=== PATIENT | male | born 1980 | race Caucasian/White ===

== ENCOUNTER 2021-01-12 13:07 | Inpatient (IN) | payer MEDICARE, MEDICAID ==
[~2021-01-12] VITALS: Ht 188 cm; Wt 89.0 kg
[2021-01-12] MEDS ORDERED: QUET100T PO (14:15)
[2021-01-12] MEDS ORDERED: LITH600C5 PO (14:15)
[2021-01-12] MEDS ORDERED: ZOLPIDEM TARTRATE 10 MG TABLET PO PRN (14:15)
[2021-01-12] MEDS ORDERED: HYDR25TA84 PO (14:16)
[2021-01-12 15:04] VITALS: BP 130/73
[2021-01-12] MEDS: LORazepam 2 MG TABLET PO PRN (15:17)
[2021-01-12] MEDS: HALOPERIDOL 5 MG TABLET PO PRN (15:17)
[2021-01-12 16:13] VITALS: BP 136/71
[2021-01-12] MEDS ORDERED: ONDANSETRON HCL 4 MG TABLET PO PRN (17:00)
[2021-01-12] MEDS ORDERED: HYPROMELLOSE 0.5% 15 ML OPHTHALMIC SOLUTION OU PRN (17:00)
[2021-01-12] MEDS ORDERED: NICOTINE POLACRILEX 2 MG LOZENGE PO PRN (17:00)
[2021-01-12] MEDS: METHADONE HCL 10 MG TABLET PO SCH (19:45)
[2021-01-12] MEDS: RALTEGRAVIR 400 MG TABLET PO SCH (21:56)
[2021-01-13 05:36] VITALS: BP 126/71
[2021-01-13] MEDS ORDERED: ACETAMINOPHEN 325 MG TABLET PO PRN (07:45)
[2021-01-13] MEDS ORDERED: IBUPROFEN 400 MG TABLET PO PRN (07:45)
[2021-01-13] MEDS ORDERED: NICOTINE 14 MG/24 HOUR PATCH TD PRN (07:45)
[2021-01-13] MEDS ORDERED: ONDANSETRON HCL 4 MG TABLET PO PRN (07:45)
[2021-01-13] MEDS ORDERED: MAG HYDROX/AL HYDROX/SIMETH ES 30 ML SUSPENSION UDCUP PO PRN (07:45)
[2021-01-13] MEDS ORDERED: ALBUTEROL SULFATE HFA 90 MCG/PUFF 8 GM INHALER IH PRN (07:45)
[2021-01-13] MEDS ORDERED: DOCUSATE SODIUM 100 MG CAPSULE PO PRN (07:45)
[2021-01-13] MEDS ORDERED: MAGNESIUM HYDROXIDE SUSPENSION 30 ML UDCUP PO PRN (07:45)
[2021-01-13] MEDS ORDERED: LOPERAMIDE HCL 2 MG CAPSULE PO PRN (07:45)
[2021-01-13] MEDS ORDERED: PETROLATUM,WHITE 28 GM JELLY TP PRN (07:45)
[2021-01-13] MEDS ORDERED: CloNIDine HCL 0.1 MG TABLET PO PRN (07:45)
[2021-01-13] MEDS ORDERED: GuaiFENesin/D-METHORPHAN [SUGAR-FREE] 200-20MG/10 ML SYRUP UDCUP PO PRN (07:45)
[2021-01-13 08:13] LABS: CHOL/HDL RATIO 2.5 (4.2-7.3); FREE T4 (FREE THYROXINE) 1.26 ng/dL (0.76-1.46); THYROID STIMULATING HORMONE 0.83 uIU/mL (0.36-3.74)
[2021-01-13 08:34] VITALS: BP 114/63
[2021-01-13] MEDS: EMTRICITABINE/TENOFOVIR 200-300 MG TABLET PO SCH (08:37)
[2021-01-13] MEDS: RALTEGRAVIR 400 MG TABLET PO SCH ×2 (08:37→16:33)
[2021-01-13] MEDS: METHADONE HCL 10 MG TABLET PO SCH (08:37)
[2021-01-13] MEDS: HydrALAZINE HCL 25 MG TABLET PO SCH (08:37)
[2021-01-13] MEDS: LITHIUM CARBONATE 600 MG CAPSULE PO SCH (13:01)
[2021-01-13] MEDS: LORazepam 2 MG TABLET PO PRN (13:04)
[2021-01-13 16:10] VITALS: BP 122/63
[2021-01-13] MEDS: QUEtiapine FUMARATE 100 MG TABLET PO SCH (20:43)
[2021-01-14] MEDS: LITHIUM CARBONATE 600 MG CAPSULE PO SCH (08:57)
[2021-01-14] MEDS: EMTRICITABINE/TENOFOVIR 200-300 MG TABLET PO SCH (08:57)
[2021-01-14] MEDS: HydrALAZINE HCL 25 MG TABLET PO SCH (08:57)
[2021-01-14] MEDS: RALTEGRAVIR 400 MG TABLET PO SCH ×2 (08:58→16:39)
[2021-01-14] MEDS: METHADONE HCL 10 MG TABLET PO SCH (09:01)
[2021-01-14 09:19] VITALS: BP 110/89
[2021-01-14] MEDS: LORazepam 2 MG TABLET PO PRN (10:48)
[2021-01-14] MEDS: OLANZapine 5 MG TABLET PO SCH (16:39)
[2021-01-14 17:41] VITALS: BP 138/83
[2021-01-14] MEDS: BACITRACIN 28 GM OINTMENT TP SCH (17:50)
[2021-01-14] MEDS: QUEtiapine FUMARATE 100 MG TABLET PO SCH (20:31)
[2021-01-15 08:37] VITALS: BP 135/86
[2021-01-15] MEDS: METHADONE HCL 10 MG TABLET PO SCH (10:12)
[2021-01-15] MEDS: EMTRICITABINE/TENOFOVIR 200-300 MG TABLET PO SCH (10:13)
[2021-01-15] MEDS: RALTEGRAVIR 400 MG TABLET PO SCH ×2 (10:13→16:29)
[2021-01-15] MEDS: BACITRACIN 28 GM OINTMENT TP SCH ×2 (10:14→16:29)
[2021-01-15] MEDS: OLANZapine 5 MG TABLET PO SCH ×2 (10:14→16:29)
[2021-01-15] MEDS: LORazepam 2 MG TABLET PO PRN ×2 (10:14→21:20)
[2021-01-15] MEDS: HydrALAZINE HCL 25 MG TABLET PO SCH (10:15)
[2021-01-15] MEDS: LITHIUM CARBONATE 600 MG CAPSULE PO SCH (10:15)
[2021-01-15 16:07] VITALS: BP 123/72
[2021-01-15] MEDS: QUEtiapine FUMARATE 100 MG TABLET PO SCH (20:15)
[2021-01-16 02:28] VITALS: BP 123/73
[2021-01-16] MEDS: HydrALAZINE HCL 25 MG TABLET PO SCH (07:59)
[2021-01-16] MEDS: OLANZapine 5 MG TABLET PO SCH ×2 (08:00→16:21)
[2021-01-16] MEDS: LITHIUM CARBONATE 600 MG CAPSULE PO SCH (08:00)
[2021-01-16] MEDS: EMTRICITABINE/TENOFOVIR 200-300 MG TABLET PO SCH (08:00)
[2021-01-16] MEDS: RALTEGRAVIR 400 MG TABLET PO SCH ×2 (08:00→16:21)
[2021-01-16] MEDS: METHADONE HCL 10 MG TABLET PO SCH (08:00)
[2021-01-16] MEDS: BACITRACIN 28 GM OINTMENT TP SCH ×2 (08:02→16:21)
[2021-01-16 08:58] VITALS: BP 115/73
[2021-01-16] MEDS: LORazepam 2 MG TABLET PO PRN ×2 (12:22→18:03)
[2021-01-16] MEDS: HALOPERIDOL 5 MG TABLET PO PRN (12:22)
[2021-01-16 16:44] VITALS: BP 107/71
[2021-01-16] MEDS: QUEtiapine FUMARATE 100 MG TABLET PO SCH (20:40)
[2021-01-17 08:34] VITALS: BP 101/75
[2021-01-17] MEDS: LITHIUM CARBONATE 600 MG CAPSULE PO SCH (09:02)
[2021-01-17] MEDS: RALTEGRAVIR 400 MG TABLET PO SCH ×2 (09:02→16:18)
[2021-01-17] MEDS: HydrALAZINE HCL 25 MG TABLET PO SCH (09:02)
[2021-01-17] MEDS: OLANZapine 5 MG TABLET PO SCH (09:02)
[2021-01-17] MEDS: EMTRICITABINE/TENOFOVIR 200-300 MG TABLET PO SCH (09:02)
[2021-01-17] MEDS: METHADONE HCL 10 MG TABLET PO SCH (09:03)
[2021-01-17] MEDS: LORazepam 2 MG TABLET PO PRN ×2 (09:06→20:08)
[2021-01-17] MEDS: BACITRACIN 28 GM OINTMENT TP SCH ×2 (09:26→16:18)
[2021-01-17 15:51] LABS: COVID AG,FIA SOURCE NASOPHARYNGEAL
[2021-01-17 16:17] VITALS: BP 121/76
[2021-01-17] MEDS: OLANZapine 10 MG TABLET PO SCH (20:07)
[2021-01-17] MEDS: QUEtiapine FUMARATE 100 MG TABLET PO SCH (20:07)
[2021-01-17] MEDS: HALOPERIDOL 5 MG TABLET PO PRN (20:08)
[2021-01-18 08:36] VITALS: BP 111/72
[2021-01-18] MEDS: RALTEGRAVIR 400 MG TABLET PO SCH ×2 (09:00→16:15)
[2021-01-18] MEDS: BACITRACIN 28 GM OINTMENT TP SCH ×2 (09:00→16:15)
[2021-01-18] MEDS: HydrALAZINE HCL 25 MG TABLET PO SCH (09:00)
[2021-01-18] MEDS: EMTRICITABINE/TENOFOVIR 200-300 MG TABLET PO SCH (09:00)
[2021-01-18] MEDS: LITHIUM CARBONATE 600 MG CAPSULE PO SCH (09:00)
[2021-01-18] MEDS: METHADONE HCL 10 MG TABLET PO SCH (09:00)
[2021-01-18] MEDS: LORazepam 2 MG TABLET PO PRN ×2 (13:20→20:43)
[2021-01-18 16:03] VITALS: BP 118/73
[2021-01-18] MEDS: OLANZapine 10 MG TABLET PO SCH (20:43)
[2021-01-18] MEDS: QUEtiapine FUMARATE 100 MG TABLET PO SCH (20:43)
[2021-01-19] MEDS: BACITRACIN 28 GM OINTMENT TP SCH ×2 (09:00→16:19)
[2021-01-19] MEDS: RALTEGRAVIR 400 MG TABLET PO SCH ×2 (09:36→16:18)
[2021-01-19] MEDS: LITHIUM CARBONATE 600 MG CAPSULE PO SCH (09:37)
[2021-01-19] MEDS: HydrALAZINE HCL 25 MG TABLET PO SCH (09:37)
[2021-01-19] MEDS: METHADONE HCL 10 MG TABLET PO SCH (09:37)
[2021-01-19] MEDS: EMTRICITABINE/TENOFOVIR 200-300 MG TABLET PO SCH (09:37)
[2021-01-19] MEDS: LORazepam 2 MG TABLET PO PRN ×2 (10:34→17:08)
[2021-01-19 13:14] VITALS: BP 120/72
[2021-01-19 16:38] VITALS: BP 121/76
[2021-01-19 17:08] VITALS: BP 121/76
[2021-01-19 18:08] VITALS: BP 119/69
[2021-01-19] MEDS: OLANZapine 10 MG TABLET PO SCH (20:05)
[2021-01-19] MEDS: QUEtiapine FUMARATE 100 MG TABLET PO SCH (20:05)
[2021-01-20 08:00] VITALS: BP 110/70
[2021-01-20 08:37] VITALS: BP 110/70
[2021-01-20] MEDS: BACITRACIN 28 GM OINTMENT TP SCH ×2 (09:00→16:40)
[2021-01-20] MEDS: HydrALAZINE HCL 25 MG TABLET PO SCH (09:41)
[2021-01-20] MEDS: LITHIUM CARBONATE 600 MG CAPSULE PO SCH (09:41)
[2021-01-20] MEDS: EMTRICITABINE/TENOFOVIR 200-300 MG TABLET PO SCH (09:41)
[2021-01-20] MEDS: RALTEGRAVIR 400 MG TABLET PO SCH ×2 (09:41→16:40)
[2021-01-20] MEDS: METHADONE HCL 10 MG TABLET PO SCH (09:42)
[2021-01-20] MEDS: LORazepam 2 MG TABLET PO PRN ×2 (11:23→18:58)
[2021-01-20 16:00] VITALS: BP 119/62
[2021-01-20] MEDS: QUEtiapine FUMARATE 100 MG TABLET PO SCH (20:22)
[2021-01-20] MEDS: OLANZapine 10 MG TABLET PO SCH (20:22)
[2021-01-21] MEDS: HydrALAZINE HCL 25 MG TABLET PO SCH (08:03)
[2021-01-21] MEDS: LITHIUM CARBONATE 600 MG CAPSULE PO SCH (08:03)
[2021-01-21] MEDS: BACITRACIN 28 GM OINTMENT TP SCH ×2 (08:03→16:43)
[2021-01-21] MEDS: EMTRICITABINE/TENOFOVIR 200-300 MG TABLET PO SCH (08:03)
[2021-01-21] MEDS: METHADONE HCL 10 MG TABLET PO SCH (08:03)
[2021-01-21] MEDS: RALTEGRAVIR 400 MG TABLET PO SCH ×2 (08:03→16:43)
[2021-01-21] MEDS: HALOPERIDOL 5 MG TABLET PO PRN (08:07)
[2021-01-21 08:57] VITALS: BP 111/74
[2021-01-21] MEDS: LORazepam 2 MG TABLET PO PRN (12:17)
[2021-01-21 16:53] VITALS: BP 105/61
[2021-01-21] MEDS: QUEtiapine FUMARATE 100 MG TABLET PO SCH (20:23)
[2021-01-21] MEDS: OLANZapine 10 MG TABLET PO SCH (20:23)
[2021-01-22] MEDS: METHADONE HCL 10 MG TABLET PO SCH (08:09)
[2021-01-22] MEDS: LITHIUM CARBONATE 600 MG CAPSULE PO SCH (08:09)
[2021-01-22] MEDS: HydrALAZINE HCL 25 MG TABLET PO SCH (08:09)
[2021-01-22] MEDS: EMTRICITABINE/TENOFOVIR 200-300 MG TABLET PO SCH (08:09)
[2021-01-22] MEDS: RALTEGRAVIR 400 MG TABLET PO SCH ×2 (08:09→16:10)
[2021-01-22 08:38] VITALS: BP 119/66
[2021-01-22] MEDS: LORazepam 2 MG TABLET PO PRN ×2 (11:43→17:34)
[2021-01-22 16:00] VITALS: BP 124/76
[2021-01-22] MEDS: QUEtiapine FUMARATE 100 MG TABLET PO SCH (20:16)
[2021-01-22] MEDS: OLANZapine 10 MG TABLET PO SCH (20:16)
[2021-01-23] MEDS: LITHIUM CARBONATE 600 MG CAPSULE PO SCH (08:12)
[2021-01-23] MEDS: EMTRICITABINE/TENOFOVIR 200-300 MG TABLET PO SCH (08:12)
[2021-01-23] MEDS: METHADONE HCL 10 MG TABLET PO SCH (08:12)
[2021-01-23] MEDS: HydrALAZINE HCL 25 MG TABLET PO SCH (08:12)
[2021-01-23] MEDS: RALTEGRAVIR 400 MG TABLET PO SCH ×2 (08:12→16:21)
[2021-01-23 09:00] VITALS: BP 126/68
[2021-01-23] MEDS: LORazepam 2 MG TABLET PO PRN ×2 (12:08→19:50)
[2021-01-23 16:28] VITALS: BP 110/74
[2021-01-23 18:02] LABS: COVID AG,FIA SOURCE NASAL SWAB
[2021-01-23 19:50] VITALS: BP 110/74
[2021-01-23] MEDS: QUEtiapine FUMARATE 100 MG TABLET PO SCH (20:15)
[2021-01-23] MEDS: OLANZapine 10 MG TABLET PO SCH (20:15)
[2021-01-23 20:17] VITALS: BP 110/74
[2021-01-23 21:17] VITALS: BP 115/68
[2021-01-23] MEDS: HALOPERIDOL 5 MG TABLET PO PRN (21:48)
[2021-01-23 22:00] VITALS: BP 115/60
[2021-01-24] MEDS: LITHIUM CARBONATE 600 MG CAPSULE PO SCH (08:16)
[2021-01-24] MEDS: METHADONE HCL 10 MG TABLET PO SCH (08:16)
[2021-01-24] MEDS: EMTRICITABINE/TENOFOVIR 200-300 MG TABLET PO SCH (08:17)
[2021-01-24] MEDS: RALTEGRAVIR 400 MG TABLET PO SCH (08:17)
[2021-01-24] MEDS: HydrALAZINE HCL 25 MG TABLET PO SCH (08:24)
[2021-01-24 08:55] VITALS: BP 102/64
[2021-01-24] MEDS ORDERED: LITH600C5 PO (10:33)
[2021-01-24] MEDS ORDERED: OLAN10TA74 PO (10:34)
[2021-01-24] MEDS ORDERED: QUET100T PO (10:35)
[2021-01-24] MEDS ORDERED: TRUVT PO (10:42)
[2021-01-24] MEDS ORDERED: RALT400T PO (10:44)
[2021-01-24] MEDS: LORazepam 2 MG TABLET PO PRN (12:24)
== END 2021-01-24 15:35 | disposition home or self-care (01) | DRG 885 ==
LOC: B2X 14:17 → 3EX 01-13 18:50
PROVIDERS: ADMIT Psychiatry & Neurology Child & Adolescent Psychiatry; ATTEND Psychiatry & Neurology Child & Adolescent Psychiatry
DX: F31.4 Bipolar disorder, current episode depressed, severe, without psychotic features (principal); R45.851 Suicidal ideations; F10.10 Alcohol abuse, uncomplicated; F25.0 Schizoaffective disorder, bipolar type; Z20.822 Contact with and (suspected) exposure to COVID-19; F41.9 Anxiety disorder, unspecified; Z59.0 Homelessness
CPT/HCPCS: 80061; 80178; 84439; 84443; 87081; 94660; A9575; G0378

== ENCOUNTER 2022-01-24 19:39 | Inpatient (IN) | payer MEDICARE, OTHER ==
[~2022-01-24] VITALS: Ht 182.9 cm; Wt 92.7 kg
[~2022-01-24 19:39] MED LIST: HYDR25TA84 PO; LITH600C5 PO; OLAN10TA74 PO; QUET100T PO; RALT400T PO; TRUVT PO
[2022-01-24] MEDS ORDERED: METH5SOL3 PO (21:24)
[2022-01-24] MEDS ORDERED: ARIP10TA38 PO (21:24)
[2022-01-24 22:34] LABS: BASOPHILS % (AUTO) 0.6 % (0.0-2.0); EOSINOPHILS % (AUTO) 2.6 % (1.0-6.0); HEMATOCRIT 39.1 % (41-53); HEMOGLOBIN 13.3 g/dL (13.5-17.5); LYMPHOCYTES # (AUTO) 1.9 K/uL (1.0-4.8); LYMPHOCYTES % (AUTO) 45.8 % (22.0-44.0); MEAN CORPUSCULAR HEMOGLOBIN 30.8 pg (26.0-34.0); MEAN CORPUSCULAR HGB CONC 34.1 G/dL (31.0-37.0); MEAN CORPUSCULAR VOLUME 90 fL (80-100); MONOCYTES # (AUTO) 0.5 K/uL (0.1-1.0); NEUTROPHILS # (AUTO) 1.7 K/uL (1.8-7.7); PLATELET COUNT (AUTO) 167 K/uL (150-450); RED BLOOD CELL COUNT(AUTO) 4.33 MIL/uL (4.50-5.90); RED CELL DISTRIBUTION WIDTH 12.5 % (11.5-14.5)
[2022-01-24 22:47] LABS: ANION GAP 5 mmol/L (8-16); CALCIUM, TOTAL 8.5 mg/dL (8.8-10.5); CARBON DIOXIDE 33 mmol/L (22-29); CHLORIDE 107 mmol/L (98-107); CREATININE 0.99 mg/dL (0.60-1.30); GLUCOSE,RANDOM 116 mg/dL (70-110); POTASSIUM 4.3 mmol/L (3.5-5.1); SODIUM SERUM 145 mmol/L (136-145); UREA NITROGEN, BLOOD 18 mg/dL (7-18)
[2022-01-24 22:49] LABS: GLOMERULAR FILTR. RATE CALC > 60 mL/min (>60)
[2022-01-24 22:53] LABS: ALANINE AMINOTRANSFERASE 32 U/L (12-78); ALBUMIN 3.4 g/dL (3.4-5.0); ALKALINE PHOSPHATASE 72 U/L (46-116); ASPARTATE AMINOTRANSFERASE 17 U/L (15-37); BILIRUBIN,TOTAL 0.3 mg/dL (0.1-1.0); TOTAL PROTEIN, SERUM 6.3 g/dL (6.4-8.2)
[2022-01-24 22:59] LABS: LITHIUM < 0.20 mmol/L (0.60-1.20)
[2022-01-24] MEDS ORDERED: 0.9% SODIUM CHLORIDE 10 ML SYRINGE IVP PRN (23:45)
[2022-01-25] MEDS ORDERED: ONDANSETRON HCL 4 MG/2 ML VIAL IVP PRN (00:30)
[2022-01-25] MEDS ORDERED: IPRATROPIUM BROMIDE 0.5 MG/2.5 ML NEB SOLUTION NEB PRN (00:30)
[2022-01-25] MEDS ORDERED: ALBUTEROL SULFATE 2.5 MG/0.5 ML NEB SOLUTION NEB PRN (00:30)
[2022-01-25] MEDS ORDERED: ACETAMINOPHEN 325 MG TABLET PO PRN (00:30)
[2022-01-25 01:09] LABS: FERRITIN 76 ng/mL (26-388); LACTATE DEHYDROGENASE 159 U/L (85-227)
[2022-01-25 01:13] LABS: C-REACTIVE PROTEIN QUANT < 0.05 mg/dL (0.00-0.30)
[2022-01-25 03:30] VITALS: BP 119/64
[2022-01-25] MEDS: HEPARIN SODIUM,PORCINE 5,000 UNITS/ML VIAL SQ SCH ×3 (08:00→23:14)
[2022-01-25 08:30] VITALS: BP 114/70
[2022-01-25] MEDS ORDERED: METHADONE HCL 10 MG TABLET PO SCH (10:45)
[2022-01-25] MEDS ORDERED: METHADONE HCL 10 MG/5 ML SOLUTION ORAL.SYG PO SCH (10:52)
[2022-01-25] MEDS: METHADONE HCL 10 MG/5 ML SOLUTION ORAL.SYG PO SCH (11:23)
[2022-01-25 12:24] VITALS: BP 108/77
[2022-01-25] MEDS ORDERED: ARIPiprazole 10 MG TABLET PO SCH (14:45)
[2022-01-25] MEDS ORDERED: LITHIUM CARBONATE 600 MG CAPSULE PO SCH (14:45)
[2022-01-25 16:30] VITALS: BP 111/72
[2022-01-25 19:21] VITALS: BP 105/64
[2022-01-25] MEDS: ARIPiprazole 10 MG TABLET PO SCH (20:00)
[2022-01-25] MEDS: LITHIUM CARBONATE 600 MG CAPSULE PO SCH (20:00)
[2022-01-26 00:02] VITALS: BP 117/69
[2022-01-26 03:50] VITALS: BP 103/56
[2022-01-26 06:21] LABS: BASOPHILS % (AUTO) 0.3 % (0.0-2.0); EOSINOPHILS % (AUTO) 3.4 % (1.0-6.0); HEMATOCRIT 40.5 % (41-53); HEMOGLOBIN 14.3 g/dL (13.5-17.5); LYMPHOCYTES % (AUTO) 45.7 % (22.0-44.0); MEAN CORPUSCULAR HEMOGLOBIN 31.3 pg (26.0-34.0); MEAN CORPUSCULAR HGB CONC 35.2 G/dL (31.0-37.0); MEAN CORPUSCULAR VOLUME 89 fL (80-100); MONOCYTES # (AUTO) 0.4 K/uL (0.1-1.0); MONOCYTES % (AUTO) 8.5 % (2.0-9.0); NEUTROPHILS # (AUTO) 1.9 K/uL (1.8-7.7); NEUTROPHILS % (AUTO) 42.1 % (40.0-70.0); PLATELET COUNT (AUTO) 177 K/uL (150-450); RED BLOOD CELL COUNT(AUTO) 4.55 MIL/uL (4.50-5.90); RED CELL DISTRIBUTION WIDTH 12.1 % (11.5-14.5)
[2022-01-26 06:32] LABS: ALANINE AMINOTRANSFERASE 30 U/L (12-78); ALBUMIN 3.5 g/dL (3.4-5.0); ALKALINE PHOSPHATASE 69 U/L (46-116); ANION GAP 6 mmol/L (8-16); ASPARTATE AMINOTRANSFERASE 16 U/L (15-37); BILIRUBIN,TOTAL 0.4 mg/dL (0.1-1.0); CALCIUM, TOTAL 8.6 mg/dL (8.8-10.5); CARBON DIOXIDE 31 mmol/L (22-29); CHLORIDE 105 mmol/L (98-107); CREATININE 0.96 mg/dL (0.60-1.30); GLUCOSE,RANDOM 113 mg/dL (70-110); SODIUM SERUM 142 mmol/L (136-145); TOTAL PROTEIN, SERUM 6.5 g/dL (6.4-8.2); UREA NITROGEN, BLOOD 17 mg/dL (7-18)
[2022-01-26 06:36] LABS: GLOMERULAR FILTR. RATE CALC > 60 mL/min (>60)
[2022-01-26 06:59] LABS: C-REACTIVE PROTEIN QUANT 0.17 mg/dL (0.00-0.30); FERRITIN 53 ng/mL (26-388)
[2022-01-26] MEDS: HEPARIN SODIUM,PORCINE 5,000 UNITS/ML VIAL SQ SCH ×2 (08:00→16:00)
[2022-01-26 08:30] VITALS: BP 105/76
[2022-01-26] MEDS: METHADONE HCL 10 MG/5 ML SOLUTION ORAL.SYG PO SCH (09:38)
[2022-01-26] MEDS: LITHIUM CARBONATE 600 MG CAPSULE PO SCH (09:38)
[2022-01-26] MEDS: ARIPiprazole 10 MG TABLET PO SCH (09:38)
[2022-01-26 12:30] VITALS: BP 106/72
[2022-01-26] MEDS ORDERED: REMDESIVIR 200 MG in SODIUM CHLORIDE 0.9% 250 ML IV ONE (14:00)
[2022-01-26 20:47] VITALS: BP 96/64
[2022-01-27 00:16] VITALS: BP 97/58
[2022-01-27 04:00] VITALS: BP 109/66
[2022-01-27 06:32] LABS: BASOPHILS % (AUTO) 0.6 % (0.0-2.0); EOSINOPHILS % (AUTO) 3.6 % (1.0-6.0); HEMATOCRIT 42.2 % (41-53); HEMOGLOBIN 14.7 g/dL (13.5-17.5); LYMPHOCYTES # (AUTO) 1.9 K/uL (1.0-4.8); LYMPHOCYTES % (AUTO) 43.5 % (22.0-44.0); MEAN CORPUSCULAR HGB CONC 34.8 G/dL (31.0-37.0); MEAN CORPUSCULAR VOLUME 89 fL (80-100); MONOCYTES # (AUTO) 0.4 K/uL (0.1-1.0); MONOCYTES % (AUTO) 8.3 % (2.0-9.0); NEUTROPHILS # (AUTO) 1.9 K/uL (1.8-7.7); PLATELET COUNT (AUTO) 183 K/uL (150-450); RED BLOOD CELL COUNT(AUTO) 4.75 MIL/uL (4.50-5.90); RED CELL DISTRIBUTION WIDTH 12.3 % (11.5-14.5)
[2022-01-27 06:58] LABS: ALANINE AMINOTRANSFERASE 33 U/L (12-78); ALBUMIN 3.6 g/dL (3.4-5.0); ALKALINE PHOSPHATASE 75 U/L (46-116); ANION GAP 2 mmol/L (8-16); ASPARTATE AMINOTRANSFERASE 17 U/L (15-37); BILIRUBIN,TOTAL 0.4 mg/dL (0.1-1.0); C-REACTIVE PROTEIN QUANT 0.09 mg/dL (0.00-0.30); CALCIUM, TOTAL 8.6 mg/dL (8.8-10.5); CARBON DIOXIDE 36 mmol/L (22-29); CHLORIDE 103 mmol/L (98-107); CREATININE 0.95 mg/dL (0.60-1.30); FERRITIN 57 ng/mL (26-388); GLOMERULAR FILTR. RATE CALC > 60 mL/min (>60); GLUCOSE,RANDOM 93 mg/dL (70-110); POTASSIUM 4.7 mmol/L (3.5-5.1); SODIUM SERUM 141 mmol/L (136-145); TOTAL PROTEIN, SERUM 6.6 g/dL (6.4-8.2); UREA NITROGEN, BLOOD 17 mg/dL (7-18)
[2022-01-27] MEDS: HEPARIN SODIUM,PORCINE 5,000 UNITS/ML VIAL SQ SCH ×4 (08:00→23:17)
[2022-01-27 08:17] VITALS: BP 108/41
[2022-01-27] MEDS: ARIPiprazole 10 MG TABLET PO SCH (08:39)
[2022-01-27] MEDS: LITHIUM CARBONATE 600 MG CAPSULE PO SCH (08:39)
[2022-01-27] MEDS: METHADONE HCL 10 MG/5 ML SOLUTION ORAL.SYG PO SCH (08:40)
[2022-01-27 11:48] VITALS: BP 123/63
[2022-01-27] MEDS ORDERED: REMDESIVIR 100 MG in SODIUM CHLORIDE 0.9% 250 ML IV SCH (14:00)
[2022-01-27] MEDS: SERTRALINE HCL 50 MG TABLET PO SCH (14:55)
[2022-01-27 15:59] VITALS: BP 116/70
[2022-01-27 19:20] LABS: COVID AG,FIA SOURCE NASAL SWAB
[2022-01-27 20:15] VITALS: BP 117/66
[2022-01-28] VITALS (7 sets, daily range): BP systolic 100–146; BP diastolic 62–75
[2022-01-28] MEDS: HEPARIN SODIUM,PORCINE 5,000 UNITS/ML VIAL SQ SCH ×3 (08:00→23:45)
[2022-01-28] MEDS: METHADONE HCL 10 MG/5 ML SOLUTION ORAL.SYG PO SCH (08:53)
[2022-01-28] MEDS: SERTRALINE HCL 50 MG TABLET PO SCH (08:53)
[2022-01-28] MEDS: LITHIUM CARBONATE 600 MG CAPSULE PO SCH (08:53)
[2022-01-28] MEDS: ARIPiprazole 10 MG TABLET PO SCH (08:53)
[2022-01-28] MEDS ORDERED: LOSARTAN POTASSIUM 25 MG TABLET PO SCH (09:00)
[2022-01-28 11:37] LABS: BASOPHILS % (AUTO) 0.5 % (0.0-2.0); EOSINOPHILS % (AUTO) 2.3 % (1.0-6.0); LYMPHOCYTES # (AUTO) 1.2 K/uL (1.0-4.8); LYMPHOCYTES % (AUTO) 25.6 % (22.0-44.0); MEAN CORPUSCULAR HEMOGLOBIN 30.9 pg (26.0-34.0); MEAN CORPUSCULAR HGB CONC 34.9 G/dL (31.0-37.0); MEAN CORPUSCULAR VOLUME 89 fL (80-100); MONOCYTES # (AUTO) 0.3 K/uL (0.1-1.0); MONOCYTES % (AUTO) 6.8 % (2.0-9.0); NEUTROPHILS % (AUTO) 64.8 % (40.0-70.0); PLATELET COUNT (AUTO) 195 K/uL (150-450); RED BLOOD CELL COUNT(AUTO) 4.85 MIL/uL (4.50-5.90); RED CELL DISTRIBUTION WIDTH 12.5 % (11.5-14.5)
[2022-01-28 12:10] LABS: ALANINE AMINOTRANSFERASE 34 U/L (12-78); ALBUMIN 3.7 g/dL (3.4-5.0); ALKALINE PHOSPHATASE 73 U/L (46-116); ANION GAP 4 mmol/L (8-16); ASPARTATE AMINOTRANSFERASE 24 U/L (15-37); BILIRUBIN,TOTAL 0.4 mg/dL (0.1-1.0); C-REACTIVE PROTEIN QUANT 0.05 mg/dL (0.00-0.30); CALCIUM, TOTAL 8.9 mg/dL (8.8-10.5); CARBON DIOXIDE 33 mmol/L (22-29); CHLORIDE 103 mmol/L (98-107); CREATININE 0.84 mg/dL (0.60-1.30); FERRITIN 59 ng/mL (26-388); GLUCOSE,RANDOM 88 mg/dL (70-110); POTASSIUM 4.4 mmol/L (3.5-5.1); SODIUM SERUM 140 mmol/L (136-145); TOTAL PROTEIN, SERUM 6.8 g/dL (6.4-8.2); UREA NITROGEN, BLOOD 15 mg/dL (7-18)
[2022-01-28 12:11] LABS: GLOMERULAR FILTR. RATE CALC > 60 mL/min (>60)
[2022-01-29 04:45] VITALS: BP 117/63
[2022-01-29 06:14] LABS: BASOPHILS % (AUTO) 0.5 % (0.0-2.0); EOSINOPHILS % (AUTO) 3.3 % (1.0-6.0); HEMOGLOBIN 13.9 g/dL (13.5-17.5); LYMPHOCYTES % (AUTO) 43.8 % (22.0-44.0); MEAN CORPUSCULAR HEMOGLOBIN 31.1 pg (26.0-34.0); MEAN CORPUSCULAR HGB CONC 34.7 G/dL (31.0-37.0); MEAN CORPUSCULAR VOLUME 90 fL (80-100); MONOCYTES # (AUTO) 0.4 K/uL (0.1-1.0); NEUTROPHILS % (AUTO) 43.4 % (40.0-70.0); PLATELET COUNT (AUTO) 181 K/uL (150-450); RED BLOOD CELL COUNT(AUTO) 4.46 MIL/uL (4.50-5.90); RED CELL DISTRIBUTION WIDTH 12.6 % (11.5-14.5)
[2022-01-29 06:44] LABS: ALANINE AMINOTRANSFERASE 33 U/L (12-78); ALBUMIN 3.4 g/dL (3.4-5.0); ALKALINE PHOSPHATASE 70 U/L (46-116); ANION GAP 4 mmol/L (8-16); ASPARTATE AMINOTRANSFERASE 15 U/L (15-37); BILIRUBIN,TOTAL 0.3 mg/dL (0.1-1.0); C-REACTIVE PROTEIN QUANT 0.07 mg/dL (0.00-0.30); CALCIUM, TOTAL 8.7 mg/dL (8.8-10.5); CARBON DIOXIDE 34 mmol/L (22-29); CHLORIDE 104 mmol/L (98-107); CREATININE 0.86 mg/dL (0.60-1.30); FERRITIN 76 ng/mL (26-388); GLUCOSE,RANDOM 96 mg/dL (70-110); POTASSIUM 4.1 mmol/L (3.5-5.1); SODIUM SERUM 142 mmol/L (136-145); TOTAL PROTEIN, SERUM 6.2 g/dL (6.4-8.2); UREA NITROGEN, BLOOD 20 mg/dL (7-18)
[2022-01-29 06:47] LABS: GLOMERULAR FILTR. RATE CALC > 60 mL/min (>60)
[2022-01-29 08:04] VITALS: BP 116/69
[2022-01-29] MEDS: HEPARIN SODIUM,PORCINE 5,000 UNITS/ML VIAL SQ SCH ×2 (08:59→16:00)
[2022-01-29] MEDS: SERTRALINE HCL 50 MG TABLET PO SCH (09:00)
[2022-01-29] MEDS: ARIPiprazole 10 MG TABLET PO SCH (09:00)
[2022-01-29] MEDS: LITHIUM CARBONATE 600 MG CAPSULE PO SCH (09:00)
[2022-01-29] MEDS: METHADONE HCL 10 MG/5 ML SOLUTION ORAL.SYG PO SCH (10:28)
[2022-01-29 12:14] VITALS: BP 119/77
[2022-01-29 15:29] VITALS: BP 113/70
[2022-01-29 20:00] VITALS: BP 121/63
[2022-01-30 04:00] VITALS: BP 109/69
[2022-01-30 07:37] VITALS: BP 120/71
[2022-01-30] MEDS: HEPARIN SODIUM,PORCINE 5,000 UNITS/ML VIAL SQ SCH ×4 (08:00→23:17)
[2022-01-30] MEDS: LITHIUM CARBONATE 600 MG CAPSULE PO SCH (09:43)
[2022-01-30] MEDS: METHADONE HCL 10 MG/5 ML SOLUTION ORAL.SYG PO SCH (09:43)
[2022-01-30] MEDS: ARIPiprazole 10 MG TABLET PO SCH (09:43)
[2022-01-30] MEDS: SERTRALINE HCL 50 MG TABLET PO SCH (09:43)
[2022-01-30 10:07] LABS: HIV 1-2 SCREEN 4TH GEN W/RFLX Non Reactive (Non Reactive)
[2022-01-30 15:02] LABS: COVID AG,FIA SOURCE NASAL SWAB
[2022-01-30 15:30] VITALS: BP 129/73
[2022-01-30 20:12] VITALS: BP 96/60
[2022-01-31 04:00] VITALS: BP 114/56
[2022-01-31] MEDS: HEPARIN SODIUM,PORCINE 5,000 UNITS/ML VIAL SQ SCH (08:00)
[2022-01-31 08:50] VITALS: BP 112/75
[2022-01-31] MEDS: ARIPiprazole 10 MG TABLET PO SCH (09:21)
[2022-01-31] MEDS: LITHIUM CARBONATE 600 MG CAPSULE PO SCH (09:21)
[2022-01-31] MEDS: SERTRALINE HCL 50 MG TABLET PO SCH (09:21)
[2022-01-31] MEDS: METHADONE HCL 10 MG/5 ML SOLUTION ORAL.SYG PO SCH (09:22)
[2022-01-31] MEDS ORDERED: SERT-439 PO (13:49)
== END 2022-01-31 14:55 | disposition home or self-care (01) | DRG 178 ==
LOC: EMS 19:41 → 5N 01-25 02:52 → 6N 01-29 18:40
PROVIDERS: ADMIT Internal Medicine; ATTEND Internal Medicine
DX: U07.1 COVID-19 (principal); R45.851 Suicidal ideations; F25.0 Schizoaffective disorder, bipolar type; E66.9 Obesity, unspecified; R09.02 Hypoxemia; Z68.30 Body mass index [BMI] 30.0-30.9, adult; Z91.013 Allergy to seafood; Z59.00 Homelessness unspecified
CPT/HCPCS: 71045; 80053; 80178; 82728; 83615; 84145; 85025; 85379; 86140; 87389; 93005; 99285; G0480; J1644; J7050; Q9967; 36415-L1; 36415-TC; U0003